=== PATIENT | male | born 1975 | race Caucasian/White ===

== ENCOUNTER 2019-12-02 13:15 | Observation (INO) | payer OTHER ==
[2019-12-02] MEDS ORDERED: MORPHINE SULFATE 4 MG/ML SYRINGE IV STA (13:40)
[2019-12-02] MEDS ORDERED: SODIUM CHLORIDE 0.9% 1,000 ML IV STA (13:40)
[2019-12-02] MEDS ORDERED: ONDANSETRON 4 MG/2 ML VIAL IVP STA (13:40)
--- NOTE | 2019-12-02 13:45 | ED ---
Abdominal Pain HPI <Louis Woodson - Last Filed: 12/02/19 16:30> - General Source: patient Mode of arrival: ambulatory Limitations: no limitations <Remi Hardin - Last Filed: 12/02/19 16:36> - General Chief Complaint: Abdominal Pain Stated Complaint: Abd Pain Time Seen by Provider: 12/02/19 13:36 - History of Present Illness Initial Comments: Patient is a 44-year-old male presenting to the emergency department with a chief complaint of abdominal pain. Patient reports pain started 2 days ago with a rather gradual onset in the right lower quadrant region with some radiation to the right testicle. Patient reports he is also getting nauseous but never vomited. He reports the pain initially started somewhat in the periorbital region and has migrated to the right lower quadrant region. Denies previous abdominal surgeries. Denies any night sweats fevers or chills. Denies dysuria, increased urgency or frequency. Denies hematuria, hematochezia or melena. (Remi Hardin) - Related Data Home Medications Medication Instructions Recorded Confirmed Dextroamphetamine/Amphetamine 30 mg PO BID@0630,1200 12/02/19 12/02/19 [Adderall] Finasteride [Proscar] 5 mg PO DAILY 12/02/19 12/02/19 Sertraline HCl [Zoloft] 100 mg PO DAILY 12/02/19 12/02/19 Allergies Allergy/AdvReac Type Severity Reaction Status Date / Time Penicillins Allergy Rash/Hives Verified 12/02/19 15:16 Review of Systems ROS Other: All systems not noted in ROS Statement are negative. <Louis Woodson - Last Filed: 12/02/19 16:30> ROS Other: All systems not noted in ROS Statement are negative. <Remi Hardin - Last Filed: 12/02/19 16:36> ROS Statement: Those systems with pertinent positive or pertinent negative responses have been documented in the HPI. Past Medical History Past Medical History: No Reported History History of Any Multi-Drug Resistant Organisms: None Reported Additional Past Surgical History / Comment(s): ACL repair Past Psychological History: No Psychological Hx Reported Smoking Status: Current some day smoker Past Alcohol Use History: None Reported Past Drug Use History: None Reported <Remi Hardin - Last Filed: 12/02/19 16:36> General Exam Limitations: no limitations General appearance: alert, in no apparent distress Head exam: Present: atraumatic, normocephalic, normal inspection Eye exam: Present: normal appearance, PERRL, EOMI Pupils: Present: normal accommodation ENT exam: Present: normal exam, normal oropharynx, mucous membranes moist, TM's normal bilaterally, normal external ear exam Neck exam: Present: normal inspection, full ROM. Absent: tenderness Respiratory exam: Present: normal lung sounds bilaterally. Absent: respiratory distress, wheezes, rales Cardiovascular Exam: Present: regular rate, normal rhythm, normal heart sounds GI/Abdominal exam: Present: soft, tenderness (Right lower quadrant. Positive McBurney point.). Absent: distended, guarding, rebound, rigid exam: Present: normal inspection. Absent: testicular tenderness, urethral discharge, scrotal swelling, vertical testicular lie, circumcision Extremities exam: Present: normal inspection, full ROM, normal capillary refill. Absent: tenderness Back exam: Present: normal inspection, full ROM. Absent: tenderness, CVA tenderness (R), CVA tenderness (L) Neurological exam: Present: alert, oriented X3 Psychiatric exam: Present: normal affect, normal mood Skin exam: Present: warm, dry, intact, normal color <Remi Hardin - Last Filed: 12/02/19 16:36> Course Vital Signs 12/02/19 12/02/19 13:26 15:11 Temperature 97.1 F L Pulse Rate 73 67 Respiratory 18 16 Rate Blood Pressure 142/82 134/60 O2 Sat by Pulse 97 98 Oximetry Medical Decision Making - Lab Data Result diagrams: 12/02/19 13:57 12/02/19 13:57 <Louis Woodson - Last Filed: 12/02/19 16:30> - Lab Data Result diagrams: 12/02/19 13:57 12/02/19 13:57 <Remi Hardin - Last Filed: 12/02/19 16:36> - Medical Decision Making Patient was reexamined and reevaluated by myself, Dr. Woodson. I agree with PAs findings. This includes diagnostic interpretation and treatment plan. Patient resting comfortably in bed, feels better following pain medication. Patient still does have mouth moderate discomfort right or abdomen. CT result reviewed. Patient requests Dr. Stoll. Case was discussed with Dr. Stoll will take patient to the OR. (Louis Woodson) - Lab Data Lab Results 12/02/19 12/02/19 12/02/19 Range/Units 13:57 13:57 13:57 WBC 8.8 (3.8-10.6) k/uL RBC 4.91 (4.30-5.90) m/uL Hgb 15.2 (13.0-17.5) gm/dL Hct 44.6 (39.0-53.0) % MCV 90.9 (80.0-100.0) fL MCH 30.9 (25.0-35.0) pg MCHC 34.0 (31.0-37.0) g/dL RDW 12.7 (11.5-15.5) % Plt Count 271 (150-450) k/uL Neutrophils % 76 % Lymphocytes % 15 % Monocytes % 5 % Eosinophils % 2 % Basophils % 1 % Neutrophils # 6.7 (1.3-7.7) k/uL Lymphocytes # 1.3 (1.0-4.8) k/uL Monocytes # 0.5 (0-1.0) k/uL Eosinophils # 0.2 (0-0.7) k/uL Basophils # 0.1 (0-0.2) k/uL Sodium 137 (137-145) mmol/L Potassium 4.1 (3.5-5.1) mmol/L Chloride 102 (98-107) mmol/L Carbon Dioxide 28 (22-30) mmol/L Anion Gap 7 mmol/L BUN 13 (9-20) mg/dL Creatinine 1.00 (0.66-1.25) mg/dL Est GFR (CKD-EPI)AfAm >90 (>60 ml/min/1.73 sqM) Est GFR (CKD-EPI)NonAf >90 (>60 ml/min/1.73 sqM) Glucose 102 H (74-99) mg/dL Calcium 9.6 (8.4-10.2) mg/dL Total Bilirubin 0.8 (0.2-1.3) mg/dL AST 31 (17-59) U/L ALT 30 (4-49) U/L Alkaline Phosphatase 65 (38-126) U/L Total Protein 7.6 (6.3-8.2) g/dL Albumin 4.5 (3.5-5.0) g/dL Lipase 29 (23-300) U/L Urine Color Light Yellow Urine Appearance Clear (Clear) Urine pH 7.0 (5.0-8.0) Ur Specific [place] 1.006 (1.001-1.035) Urine Protein Negative (Negative) Urine Glucose (UA) Negative (Negative) Urine Ketones Negative (Negative) Urine Blood Negative (Negative) Urine Nitrite Negative (Negative) Urine Bilirubin Negative (Negative) Urine Urobilinogen <2.0 (<2.0) mg/dL Ur Leukocyte Esterase Negative (Negative) Disposition <Louis Woodson - Last Filed: 12/02/19 16:30> Is patient prescribed a controlled substance at d/c from ED?: No Time of Disposition: 16:36 <Remi Hardin - Last Filed: 12/02/19 16:36> Clinical Impression: Acute appendicitis Disposition: ADMITTED IP TO THIS HOSP Condition: Good Referrals: Sylvia Covarrubias MD [Primary Care Provider] - 1-2 days
[2019-12-02] MEDS ORDERED: HYDROmorphone 0.5 MG/0.5 ML SYRINGE IVP STA (14:06)
[2019-12-02 14:14] LABS: Basophils # (A) 0.1 k/uL (0-0.2); Basophils % (A) 1 %; Eosinophils # (A) 0.2 k/uL (0-0.7); Eosinophils % (A) 2 %; HCT 44.6 % (39.0-53.0); HGB 15.2 gm/dL (13.0-17.5); Lymphocytes # (A) 1.3 k/uL (1.0-4.8); Lymphocytes % (A) 15 %; MCH 30.9 pg (25.0-35.0); MCV 90.9 fL (80.0-100.0); Monocytes # (A) 0.5 k/uL (0-1.0); Monocytes % (A) 5 %; Neutrophils # (A) 6.7 k/uL (1.3-7.7); Neutrophils % (A) 76 %; Platelet Count 271 k/uL (150-450); RBC 4.91 m/uL (4.30-5.90); RDW 12.7 % (11.5-15.5); WBC 8.8 k/uL (3.8-10.6)
[2019-12-02 14:20] LABS: Appearance,Urine Clear (Clear); Bilirubin,Urine Negative (Negative); Blood,Urine Negative (Negative); Color,Urine Light Yellow; Glucose,Urine (UA) Negative (Negative); Ketones,Urine Negative (Negative); Leukocyte Esterase,Urine Negative (Negative); Nitrite,Urine Negative (Negative); Protein,Urine Negative (Negative); Specific Gravity,Urine 1.006 (1.001-1.035); Urobilinogen,Urine <2.0 mg/dL (<2.0)
[2019-12-02 14:26] LABS: ALT 30 U/L (4-49); AST 31 U/L (17-59); African American GFR (CKD) >90 (>60 ml/min/1.73 sqM); Albumin 4.5 g/dL (3.5-5.0); Alkaline Phosphatase 65 U/L (38-126); Anion Gap 7 mmol/L; Blood Urea Nitrogen 13 mg/dL (9-20); Calcium 9.6 mg/dL (8.4-10.2); Carbon Dioxide 28 mmol/L (22-30); Chloride 102 mmol/L (98-107); Glucose 102 mg/dL (74-99); Lipase 29 U/L (23-300); Non-African American GFR(CKD) >90 (>60 ml/min/1.73 sqM); Potassium 4.1 mmol/L (3.5-5.1); Sodium 137 mmol/L (137-145); Total Bilirubin 0.8 mg/dL (0.2-1.3); Total Protein 7.6 g/dL (6.3-8.2)
--- NOTE | 2019-12-02 14:54 | CT ---
EXAMINATION TYPE: CT abdomen pelvis w con DATE OF EXAM: 12/02/2019 COMPARISON: None HISTORY: RLQ pain CT DLP: 1243.3 mGycm Automated exposure control for dose reduction was used. TECHNIQUE: Helical acquisition of images was performed from the lung bases through the pelvis. CONTRAST: Performed without Oral Contrast and with IV Contrast, patient injected with 100 mL of Isovue 300. FINDINGS: LUNG BASES: No pericardial or pleural effusion. LIVER: Normal. BILIARY SYSTEM: Normal. PANCREAS: Normal. SPLEEN: Normal. ADRENALS: Normal. KIDNEYS: Normal. BOWEL: The appendix demonstrates thickening up to 14 mm, mucosal hyperemia, periappendiceal inflamma tion and periappendiceal reactive lymph nodes. Trace amount of periappendiceal free fluid. No focal f luid collection PERITONEUM: No pneumoperitoneum. Trace right lower quadrant and right paracolic gutter free fluid. N o focal fluid collections. LYMPH NODES: No lymphadenopathy. There are nonenlarged reactive lymph nodes in the region of the claire endix. PELVIS: Normal. VASCULATURE: No abdominal aortic aneurysm. MUSCULOSKELETAL: Degenerative changes of the spine. IMPRESSION: Acute appendicitis with periappendiceal trace free fluid and reactive nonenlarged lymph nodes. No caio dence of perforation or abscess. Dr. Cyndi Gaona discussed findings with Rai Hardin PA-C via the phone on 12/02/2019 at 2: 51 PM, and results were acknowledged.
[2019-12-02] MEDS ORDERED: HEPARIN SODIUM,PORCINE 5,000 UNIT/ML 1 ML VIAL SQ STA (16:07)
[2019-12-02] MEDS ORDERED: LEVOFLOXACIN 750MG-D5W PMX 750 MG in DEXTROSE/WATER 1 150ML.BAG IVPB STA (16:07)
--- NOTE | 2019-12-02 16:24 | P.GSHP ---
History of Present Illness H&P Date: 12/02/19 CHIEF COMPLAINT: Right lower quadrant abdominal pain for 2 days HISTORY OF PRESENT ILLNESS: The patient is a previously healthy 44-year-old male who presents with 2 day history of periumbilical with right lower quadrant abdominal pain that is crampy dull ache in nature. No reports of prior abdominal pain. He states the intensity of the pain is moderate. He presented with CT abdomen and pelvis consistent with dilated appendix suspicious for appendicitis hence general surgery admission. PAST MEDICAL HISTORY: See list. PAST SURGICAL HISTORY: See list. CURRENT MEDICATIONS: See list. ALLERGIES: See list. SOCIAL HISTORY: See list. FAMILY HISTORY: No Crohns disease and ulcerative colitis. REVIEW OF ORGAN SYSTEMS: CONSTITUTIONAL: Present fever, no chills. Denies recent weight loss. HEENT: Denies any trouble with vision, hearing or nosebleeds. No difficulty swallowing. LYMPHATIC: The patient denies any lumps and bumps around the neck. ENDOCRINE: Denies any thyroid disorders. Denies any blood sugar glucose intolerance. RESPIRATORY: Denies shortness of breath including chronic cough. CARDIOVASCULAR: Denies history of chest pain with exertion. GASTROINTESTINAL: Denies regurgitation of bile at night as well as intermittent nausea. No blood in stools. History of gluten sensitivity. GENITOURINARY: Denies any blood in urine or increased urinary frequency. ` MUSCULOSKELETAL: Denies current joint arthritis. NEUROLOGIC: Denies any numbness or tingling along the distal extremities. No seizure disorders or headaches. PSYCHIATRIC: Denies any depression or suicidal ideation. HEMATOLOGIC: Denies any abnormal bleeding or bruising. PHYSICAL EXAMINATION: GENERAL: A 44-year-old male in no acute distress. Pleasant. HEENT: No sclera icterus. Extraocular movements grossly intact. Moist buccal mucosa. Head is atraumatic, normocephalic. Hears conversational speech. No nasal drainage. NECK: Supple without lymphadenopathy. No JV distention. CHEST: Non-labored respirations and equal bilateral excursions. CARDIOVASCULAR: Regular rate and rhythm. Palpable 2+ radial pulses. ABDOMEN: Soft, tender at the right lower quadrant without guarding. MUSCULOSKELETAL: No clubbing, cyanosis or edema. NEUROLOGIC: No focal or lateralizing signs. PSYCH: Appropriate affect. Alert and oriented to person, place and time. SKIN: Well perfused. Good skin turgor. LABS: Reviewed. White blood cell count normal STUDIES: CT of the abdomen and pelvis independently reviewed with findings consistent with appendicitis, dilated ascending to the right lower quadrant ASSESSMENT: 1. Right lower quadrant pain. 2. Appendicitis PLAN: 1. I have discussed benefits and risks of robotic appendectomy. 2. Bilateral SCDs. Thank you very much for allowing me to participate in the care of your patient. Past Medical History Past Medical History: No Reported History History of Any Multi-Drug Resistant Organisms: None Reported Additional Past Surgical History / Comment(s): ACL repair Past Psychological History: No Psychological Hx Reported Smoking Status: Current some day smoker Past Alcohol Use History: None Reported Past Drug Use History: None Reported Medications and Allergies Home Medications Medication Instructions Recorded Confirmed Type Dextroamphetamine/Amphetamine 30 mg PO BID@0630,1200 12/02/19 12/02/19 History [Adderall] Finasteride [Proscar] 5 mg PO DAILY 12/02/19 12/02/19 History Sertraline HCl [Zoloft] 100 mg PO DAILY 12/02/19 12/02/19 History Allergies Allergy/AdvReac Type Severity Reaction Status Date / Time Penicillins Allergy Rash/Hives Verified 12/02/19 15:16 Surgical - Exam Vital Signs Temp Pulse Resp BP Pulse Ox 97.1 F L 73 18 142/82 97 12/02/19 13:26 12/02/19 13:26 12/02/19 13:26 12/02/19 13:26 12/02/19 13:26 Results - Labs 12/02/19 13:57 12/02/19 13:57 Abnormal Lab Results - Last 24 Hours (Table) 12/02/19 Range/Units 13:57 Glucose 102 H (74-99) mg/dL Diabetes panel 12/02/19 Range/Units 13:57 Sodium 137 (137-145) mmol/L Potassium 4.1 (3.5-5.1) mmol/L Chloride 102 (98-107) mmol/L Carbon Dioxide 28 (22-30) mmol/L BUN 13 (9-20) mg/dL Creatinine 1.00 (0.66-1.25) mg/dL Glucose 102 H (74-99) mg/dL Calcium 9.6 (8.4-10.2) mg/dL AST 31 (17-59) U/L ALT 30 (4-49) U/L Alkaline Phosphatase 65 (38-126) U/L Total Protein 7.6 (6.3-8.2) g/dL Albumin 4.5 (3.5-5.0) g/dL Calcium panel 12/02/19 Range/Units 13:57 Calcium 9.6 (8.4-10.2) mg/dL Albumin 4.5 (3.5-5.0) g/dL Pituitary panel 12/02/19 Range/Units 13:57 Sodium 137 (137-145) mmol/L Potassium 4.1 (3.5-5.1) mmol/L Chloride 102 (98-107) mmol/L Carbon Dioxide 28 (22-30) mmol/L BUN 13 (9-20) mg/dL Creatinine 1.00 (0.66-1.25) mg/dL Glucose 102 H (74-99) mg/dL Calcium 9.6 (8.4-10.2) mg/dL Adrenal panel 12/02/19 Range/Units 13:57 Sodium 137 (137-145) mmol/L Potassium 4.1 (3.5-5.1) mmol/L Chloride 102 (98-107) mmol/L Carbon Dioxide 28 (22-30) mmol/L BUN 13 (9-20) mg/dL Creatinine 1.00 (0.66-1.25) mg/dL Glucose 102 H (74-99) mg/dL Calcium 9.6 (8.4-10.2) mg/dL Total Bilirubin 0.8 (0.2-1.3) mg/dL AST 31 (17-59) U/L ALT 30 (4-49) U/L Alkaline Phosphatase 65 (38-126) U/L Total Protein 7.6 (6.3-8.2) g/dL Albumin 4.5 (3.5-5.0) g/dL
[2019-12-02] MEDS ORDERED: LORazepam 2 MG/ML INJ IV PRN (16:33)
[2019-12-02] MEDS ORDERED: NALOXONE 0.4 MG/ML 1 ML VIAL IV PRN ×2 (16:33→19:39)
[2019-12-02] MEDS ORDERED: ONDANSETRON 4 MG/2 ML VIAL IVP ONE (17:28)
[2019-12-02] MEDS ORDERED: DEXAMETHASONE SOD PHOSPHATE 10 MG/ML 1 ML VIAL IV ONE (17:29)
[2019-12-02] MEDS ORDERED: SUCCINYLCHOLINE CHLORIDE 100 MG/5 ML SYR IV ONE (17:40)
[2019-12-02] MEDS ORDERED: fentaNYL (PF) 50 MCG/ML 2 ML AMP ONE (17:40)
[2019-12-02] MEDS ORDERED: NEOSTIGMINE 1 MG/ML 10 ML VIAL ONE (17:40)
[2019-12-02] MEDS ORDERED: MIDAZOLAM 2 MG/2 ML VIAL ONE (17:40)
[2019-12-02] MEDS ORDERED: ROCURONIUM 10 MG/ML (10 ML VIAL) IV ONE (17:40)
[2019-12-02] MEDS ORDERED: GLYCOPYRROLATE 0.2 MG/ML 2 ML VIAL ONE (17:40)
[2019-12-02] MEDS ORDERED: HYDROmorphone (PF) 1 MG/ML ONE (17:40)
[2019-12-02] MEDS ORDERED: LIDOCAINE 1% INJ 10MG/ML (20 ML MDV) ONE (17:40)
[2019-12-02] MEDS ORDERED: PROPOFOL 10 MG/ML 20 ML VIAL IV ONE (17:40)
[2019-12-02] MEDS ORDERED: LACTATED RINGERS 1,000 ML IV ONE ×3 (17:41→19:55)
[2019-12-02] MEDS ORDERED: BUPIVACAINE (PF) 0.5% 30 ML VIAL SQ ONE (17:52)
[2019-12-02] MEDS ORDERED: ONDANSETRON 4 MG/2 ML VIAL IVP PRN (19:40)
[2019-12-02] MEDS ORDERED: METOCLOPRAMIDE 5 MG/ML 2 ML VIAL IVP PRN (19:40)
[2019-12-02] MEDS: HYDROmorphone 1 MG/ML 1 ML SYRINGE IVP ONE ×2 (19:45→19:50)
--- NOTE | 2019-12-02 19:47 | P.OP ---
Date of Procedure: 12/02/19 Description of Procedure: SURGEON: APOORVA PANIAGUA MD Preoperative Diagnosis: 1. Acute appendicitis Postoperative Diagnosis: 1. Acute appendicitis with periappendicitis Procedure(s) Performed: 1. Robotic-assisted daVinci Xi laparoscopic lysis of adhesions, over 45 minutes 2. Robotic-assisted daVinci Xi laparoscopic appendectomy Anesthesia: GETA, local Surgeon: Apoorva Paniagua Estimated Blood Loss (ml): 30 Pathology: other (appendix, peritoneal fluid) Condition: stable Disposition: floor Operative Findings: 1. Acute appendicitis without peritonitis with periappendicitis 2. Terminal ileum unremarkable 3. No inguinal hernias 4. Dense inflammatory reaction involving mesoappendix including mucosal thickening of the appendix suspicious for malignancy 5. Dense adhesions to the right pelvis requiring lysis of adhesions over 45 minutes INDICATIONS: The patient is a 44-year-old male who presents with acute appendicitis. Benefits and risks, including infection, open surgery, and bleeding for additional surgery was discussed at length. Informed consent was obtained. All questions of the patient and family were answered. DESCRIPTION: The patient was transferred to the operating room and placed in supine position. The abdomen was then prepped and draped in standard sterile fashion as Ioban was placed along the abdomen to minimize any contamination of skin floor. After a timeout protocol was performed, attention was then brought to the left upper quadrant whereby a 0 degree 5 mm laparoscopic trocar entry was performed. The abdominal cavity was entered and insufflated to 12 mmHg pressure, which was tolerated well. Diagnostic laparoscopy demonstrated no injury to bowel, viscera or mesentery. Next a robotic 8-mm trocar was placed along the left lower quadrant, 10-cm lateral to the midline. A 12 mm port was placed along the left upper quadrant and another 8-mm port left lateral abdominal wall. Ports were placed 8 cm apart from each other including 15-20 cm away from the target anatomy of the right pelvis. The patient was then placed in Trendelenburg position, at least 7 down and right side up at least 7. The robotic da Fabien XI system was primed and docked from the left side of the patient. Using atraumatic graspers and vessel sealer, the robotic system was docked and primed as described. Instruments were interchanged by the medical clerical assistant including graspers, robotic stapler and vessel sealer. Next, attention was brought to identify the cecum. A systematic view within the abdominal cavity was started with the small bowel which was unremarkable. No inguinal hernias were identified. The body of the appendix was moderately dilated with moderate periappendicitis adherent to the pelvis. The mesoappendix was calcified with dense inflammatory reaction where malignancy cannot be excluded. No free perforation was identified. The appendix was dissected free from its surrounding tissues. Extensive lysis of adhesions over 45 minutes was used to dissect the appendix was surrounding tissues Multiple green 45 mm robotic staple loads were fired along the base of the appendix. The staple line was hemostatic After applying pressure using 4 x 4 gauze. Hemostasis was checked prior to undocking the robot. The robot was undocked. I re-scrubbed into the case. The specimen was removed from the abdominal cavity with an Endo Catch bag through the 12 mm trocar at the left upper quadrant. The port site was closed with 0 Vicryl and Konstantin Cheatham. All instruments and pneumoperitoneum were evacuated from the abdominal cavity. Local anesthetic was infiltrated to all wounds for postop analgesia. All incisions were also cleansed with diluted hydrogen peroxide. The incisions were closed with 4-0 Monocryl. Exofin glue was applied to the rest of the skin incisions. At the specimen extraction site, Optifoam dressing was placed. The patient had tolerated the procedure well. The patient was extubated successfully. The patient was transferred to the postanesthesia care unit in stable condition.
[2019-12-02] MEDS ORDERED: HYDROmorphone 1 MG/ML 1 ML SYRINGE IVP ONE ×2 (19:55→20:05)
[2019-12-02] MEDS: SODIUM CHLORIDE 0.9% 1,000 ML IV SCH (21:10)
[2019-12-02] MEDS: HYDROmorphone 1 MG/ML 1 ML SYRINGE IVP PRN (22:50)
[2019-12-03] MEDS: ACETAMINOPHEN TAB 325 MG TAB PO SCH ×4 (00:33→18:22)
[2019-12-03] MEDS: HYDROmorphone 1 MG/ML 1 ML SYRINGE IVP PRN ×4 (02:38→13:42)
[2019-12-03] MEDS: SODIUM CHLORIDE 0.9% 1,000 ML IV SCH ×2 (04:44→13:40)
[2019-12-03 08:20] LABS: Basophils % (A) 0 %; Eosinophils % (A) 0 %; HCT 40.9 % (39.0-53.0); HGB 13.7 gm/dL (13.0-17.5); Lymphocytes # (A) 1.2 k/uL (1.0-4.8); Lymphocytes % (A) 12 %; MCH 30.9 pg (25.0-35.0); MCHC 33.4 g/dL (31.0-37.0); MCV 92.4 fL (80.0-100.0); Mean Platelet Volume 6.9; Monocytes # (A) 0.6 k/uL (0-1.0); Monocytes % (A) 5 %; Neutrophils # (A) 8.4 k/uL (1.3-7.7); Neutrophils % (A) 82 %; Platelet Count 279 k/uL (150-450); RBC 4.42 m/uL (4.30-5.90); RDW 12.7 % (11.5-15.5); WBC 10.3 k/uL (3.8-10.6)
[2019-12-03 08:33] LABS: Potassium 4.5 mmol/L (3.5-5.1)
[2019-12-03 08:34] LABS: African American GFR (CKD) >90 (>60 ml/min/1.73 sqM); Anion Gap 5 mmol/L; Blood Urea Nitrogen 12 mg/dL (9-20); Carbon Dioxide 30 mmol/L (22-30); Chloride 101 mmol/L (98-107); Glucose 106 mg/dL (74-99); Non-African American GFR(CKD) 84 (>60 ml/min/1.73 sqM); Sodium 136 mmol/L (137-145)
[2019-12-03] MEDS ORDERED: PANTOPRAZOLE 40 MG/10 ML VIAL IV SCH (09:00)
[2019-12-03] MEDS ORDERED: LEVOFLOXACIN 750MG-D5W PMX 750 MG in DEXTROSE/WATER 1 150ML.BAG IVPB STA (10:03)
[2019-12-03] MEDS ORDERED: IBUPROFEN 600 MG TAB PO PRN (14:11)
--- NOTE | 2019-12-03 14:25 | P.DS ---
<Ursula Mock - Last Filed: 12/03/19 14:18> Providers Expected date of discharge: 12/03/19 Hospital Course: Discharge diagnosis 1. Acute appendicitis with periappendicitis Status post Robotic-assisted daVinci Xi laparoscopic lysis of adhesions And Robotic-assisted daVinci Xi laparoscopic appendectomy Hospital course The patient is a previously healthy 44-year-old male who presents with 2 day history of periumbilical with right lower quadrant abdominal pain that is crampy dull ache in nature. No reports of prior abdominal pain. He states the intensity of the pain is moderate. He presented with CT abdomen and pelvis consistent with dilated appendix suspicious for appendicitis. Patient is status post Robotic-assisted daVinci Xi laparoscopic lysis of adhesions And Robotic- assisted daVinci Xi laparoscopic appendectomy for acute appendicitis with periappendicitis. Patient is tolerating diet. He has been up and ambulating. He is afebrile. Patient to be discharged this evening after seen by Dr. Paniagua. Physician Cotton Ginner note has been reviewed by physician. Signing provider agrees with the documented findings, assessment, and plan of care. Patient Condition at Discharge: Stable Plan - Discharge Summary Discharge Rx Participant: No New Discharge Prescriptions: New Ibuprofen [Motrin] 600 mg PO Q8HR PRN #30 tab PRN Reason: Pain Acetaminophen Tab [Tylenol Tab] 1,000 mg PO Q6HR PRN #30 tablet PRN Reason: Pain Continue Finasteride [Proscar] 5 mg PO DAILY Dextroamphetamine/Amphetamine [Adderall] 30 mg PO BID@0630,1200 Sertraline HCl [Zoloft] 100 mg PO DAILY Discharge Medication List Dextroamphetamine/Amphetamine [Adderall] 30 mg PO BID@0630,1200 12/02/19 [History] Finasteride [Proscar] 5 mg PO DAILY 12/02/19 [History] Sertraline HCl [Zoloft] 100 mg PO DAILY 12/02/19 [History] Acetaminophen Tab [Tylenol Tab] 1,000 mg PO Q6HR PRN #30 tablet 12/04/19 [Rx] Ibuprofen [Motrin] 600 mg PO Q8HR PRN #30 tab 12/04/19 [Rx] Follow up Appointment(s)/Referral(s): Sylvia Covarrubias MD [Primary Care Provider] - 12/06/19 1:00 pm Apoorva Paniagua MD [STAFF PHYSICIAN] - 12/10/19 3:15 pm Patient Instructions/Handouts: Laparoscopic Appendectomy (DC) Activity/Diet/Wound Care/Special Instructions: No lifting over 4 pounds in 4 weeks until Jan 01. June shower. No bath tub soaks for two weeks until Dec 17 Avoid steak, tough meats and seeds such as raspberry seeds. Diet: Regular Discharge Disposition: HOME SELF-CARE <Apoorva Paniagua - Last Filed: 12/04/19 23:29> Providers Date of admission: 12/02/19 16:36 Attending physician: Apoorva Paniagua Consults: 12/02/19 16:07 Consult Physician Routine Consulting Provider: [facility] Consult Reason/Comments: [facility] Do you want consulting provider notified?: Yes Primary care physician: Satish Ward Hospital Course: Discharge held due to uncontrolled abdominal pain.
--- NOTE | 2019-12-03 20:15 | P.PN ---
Subjective Progress Note Date: 12/03/19 CHIEF COMPLAINT: Status post appendectomy HISTORY OF PRESENT ILLNESS: The patient is a 44-year-old male status post appendectomy for acute appendicitis. He is postoperative day 1. He is tolerating diet. Patient has moderate pain along the shoulders and neck from the gas of the surgery. He has been using Dilaudid for pain. Findings of surgery reviewed. ROS: No reports of nausea and vomiting. No fevers or chills. No productive sputum PHYSICAL EXAM: VITAL SIGNS: Reviewed CONSTITUTIONAL: Well developed and in no acute distress. EYES: Conjuctivae without sclera icterus. Extraocular movements grossly intact. HEAD, EARS, NOSE, THROAT: Moist buccal mucosa. Head is atraumatic, normocephalic. Hears conversational speech. No nasal drainage. NECK: Supple. No thyroidomegaly. RESPIRATORY: Non-labored respirations and equal bilateral excursions. CARDIOVASCULAR: Palpable 2+ radial pulses. Regular rate. Regular rhythm. ABDOMEN: Incisions clean dry and intact. MUSCULOSKELETAL: No gross deformity of the lower extremities noted. No clubbing. No cyanosis. SKIN: Good skin turgor. Well perfused. NEUROLOGIC: Cranial nerves II through XII grossly intact. No focal or lateralizing signs. PSYCH: Appropriate affect. Alert and oriented to person, place and time. CLINICAL LABS: White blood cell count normal ASSESSMENT: 1. Acute appendicitis PLAN: 1. Will adjust pain management to oral pain meds including simethicone. 2. Continue antibiotics for appendicitis. 3. Discharge anticipated for tomorrow. 4. Care plan described and patient agreeable and happy with plan. Objective - Vital Signs Vital signs: Vital Signs Temp 97.2 F L 12/03/19 15:00 Pulse 63 12/03/19 15:00 Resp 16 12/03/19 15:00 BP 152/72 12/03/19 15:00 Pulse Ox 96 12/03/19 15:00 Intake & Output 12/03/19 12/03/19 12/04/19 06:59 18:59 06:59 Intake Total 660 1395 Output Total 530 Balance 130 1395 Weight 107.501 kg Intake: IV 300 Intake, IV Titration 195 Amount Sodium Chloride 0.9% 1, 195 000 ml @ 130 mls/hr IV . Q7H42M [facility] Rx#:[id number] Oral 360 1200 Output: Urine 500 Estimated Blood Loss 30 Other: Voiding Method Toilet # Voids 1 4 - Labs CBC & Chem 7: 12/03/19 07:54 12/03/19 07:54 Labs: Abnormal Lab Results - Last 24 Hours (Table) 12/03/19 12/03/19 Range/Units 07:54 07:54 Neutrophils # 8.4 H (1.3-7.7) k/uL Sodium 136 L (137-145) mmol/L Glucose 106 H (74-99) mg/dL Microbiology - Last 24 Hours (Table) 12/02/19 19:20 Gram Stain - Preliminary Peritoneal Fluid Body Fluid Culture - Preliminary 12/02/19 19:20 Anaerobic Culture - Preliminary Peritoneal Fluid
[2019-12-03] MEDS: SIMETHICONE 40 MG/0.6 ML DROPS 2,000 MG/30 ML BOTTLE PO SCH (21:23)
[2019-12-03] MEDS: IBUPROFEN 600 MG TAB PO SCH ×2 (21:23→22:42)
[2019-12-03 22:11] VITALS: RESP 18
[2019-12-04 02:54] VITALS: BP 142/73; PULSE 68; TEMP 97.8
[2019-12-04] MEDS: ACETAMINOPHEN TAB 325 MG TAB PO SCH ×3 (05:38→14:03)
[2019-12-04] MEDS ORDERED: LEVOFLOXACIN 750MG-D5W PMX 750 MG in DEXTROSE/WATER 1 150ML.BAG IVPB SCH (09:00)
[2019-12-04] MEDS ORDERED: PANTOPRAZOLE 40 MG TABLET PO SCH (09:00)
[2019-12-04] MEDS: IBUPROFEN 600 MG TAB PO SCH (09:02)
[2019-12-04] MEDS: SIMETHICONE 40 MG/0.6 ML DROPS 2,000 MG/30 ML BOTTLE PO SCH (09:03)
--- NOTE | 2019-12-04 12:32 | P.DS ---
Providers Date of admission: 12/02/19 16:36 Expected date of discharge: 12/04/19 Attending physician: Apoorva Paniagua Consults: 12/02/19 16:07 Consult Physician Routine Consulting Provider: [facility] Consult Reason/Comments: [facility] Do you want consulting provider notified?: Yes Primary care physician: Satish Ward Hospital Course: Discharge diagnosis 1. Acute appendicitis with periappendicitis Status post Robotic-assisted daVinci Xi laparoscopic lysis of adhesions And Robotic-assisted daVinci Xi laparoscopic appendectomy Hospital course The patient is a healthy 44-year-old male who presents with 2 day history of periumbilical with right lower quadrant abdominal pain that is crampy dull ache in nature. No reports of prior abdominal pain. He states the intensity of the pain is moderate. He presented with CT abdomen and pelvis consistent with dilated appendix suspicious for appendicitis. Patient is status post Robotic-assisted daVinci Xi laparoscopic lysis of adhesions And Robotic-assisted daVinci Xi laparoscopic appendectomy for acute appendicitis with periappendicitis. Patient is tolerating diet. He has been up and ambulating. He is afebrile. His pain is controlled. He is stable for discharge Physician Material Disposition Inspector note has been reviewed by physician. Signing provider agrees with the documented findings, assessment, and plan of care. Patient Condition at Discharge: Stable Plan - Discharge Summary Discharge Rx Participant: No New Discharge Prescriptions: New Ibuprofen [Motrin] 600 mg PO Q8HR PRN #30 tab PRN Reason: Pain Acetaminophen Tab [Tylenol Tab] 1,000 mg PO Q6HR PRN #30 tablet PRN Reason: Pain Continue Finasteride [Proscar] 5 mg PO DAILY Dextroamphetamine/Amphetamine [Adderall] 30 mg PO BID@0630,1200 Sertraline HCl [Zoloft] 100 mg PO DAILY Discharge Medication List Dextroamphetamine/Amphetamine [Adderall] 30 mg PO BID@0630,1200 12/02/19 [History] Finasteride [Proscar] 5 mg PO DAILY 12/02/19 [History] Sertraline HCl [Zoloft] 100 mg PO DAILY 12/02/19 [History] Acetaminophen Tab [Tylenol Tab] 1,000 mg PO Q6HR PRN #30 tablet 12/04/19 [Rx] Ibuprofen [Motrin] 600 mg PO Q8HR PRN #30 tab 12/04/19 [Rx] Follow up Appointment(s)/Referral(s): Sylvia Covarrubias MD [Primary Care Provider] - 1-2 days Apoorva Paniagua MD [STAFF PHYSICIAN] - 12/10/19 Patient Instructions/Handouts: Laparoscopic Appendectomy (DC) Activity/Diet/Wound Care/Special Instructions: No lifting over 4 pounds in 4 weeks until Jan 01. June shower. No bath tub soaks for two weeks until Dec 17 Avoid steak, tough meats and seeds such as raspberry seeds. Diet: Regular Discharge Disposition: HOME SELF-CARE
== END 2019-12-04 14:32 | disposition home or self-care (01) ==
LOC: EC 13:15 → 3NCARDOBS 16:36
PROVIDERS: ADMIT Surgery Plastic and Reconstructive Surgery; ATTEND Surgery Plastic and Reconstructive Surgery
DX: K35.80 Unspecified acute appendicitis (principal); F17.200 Nicotine dependence, unspecified, uncomplicated; K66.0 Peritoneal adhesions (postprocedural) (postinfection); Z79.899 Other long term (current) drug therapy
CPT/HCPCS: 44180; 44970; S2900; 36415; 74177; 80048; 80053; 81003; 83690; 85025; 87070; 87075; 87205; 88304; 96361; 96372; 96374; 96375; 99285

== ENCOUNTER → 2023-01-23 | Outpatient (CLI) | payer OTHER ==
[2023-01-23 18:53] LABS: Basophils # (A) 0.05 X 10*3/uL (0.00-0.10); Basophils % (A) 0.8 %; Eosinophils # (A) 0.08 X 10*3/uL (0.04-0.35); Eosinophils % (A) 1.3 %; HCT 41.3 % (39.6-50.0); HGB 14.1 g/dL (13.0-17.0); Lymphocytes # (A) 1.13 X 10*3/uL (0.90-5.00); Lymphocytes % (A) 19.1 %; MCH 29.9 pg (27.0-32.0); MCHC 34.1 g/dL (32.0-37.0); MCV 87.7 FL (80.0-97.0); Mean Platelet Volume 10.8 FL (9.5-12.2); Monocytes % (A) 3.4 %; NRBC Per 100 WBC 0 X 10*3/uL (0.00-0.01); Neutrophils # (A) 4.45 X 10*3/uL (1.80-7.70); Neutrophils % (A) 75.1 %; Platelet Count 254 X 10*3/uL (140-440); RBC 4.71 X 10*6/uL (4.40-5.60); RDW 12.4 % (11.5-14.5); WBC 5.93 X 10*3/uL (4.50-10.00)
[2023-01-23 19:02] LABS: ALT 41 U/L (10-49); AST 29 U/L (14-35); Albumin 4.7 g/dL (3.8-4.9); Albumin/Globulin Ratio 1.88 Ratio (1.60-3.17); Alkaline Phosphatase 62 U/L (41-126); Bilirubin, Conjugated <0.20 mg/dL (0.20-0.40); Bilirubin,Unconjugated >0.20 mg/dL (0.20-1.00); Blood Urea Nitrogen 20.3 mg/dL (9.0-27.0); Calcium 9.7 mg/dL (8.7-10.3); Carbon Dioxide 23.9 mmol/L (21.6-31.8); Chloride 104 mmol/L (96-109); Globulin 2.5 g/dL (1.6-3.3); Glucose 105 mg/dL (70-110); Potassium 4.4 mmol/L (3.5-5.5); Sodium 139 mmol/L (135-145); Total Bilirubin 0.4 mg/dL (0.3-1.2); Total Protein 7.2 g/dL (6.2-8.2)
[2023-01-23 19:23] LABS: Hepatitis B Surface AB- Quant 46.4 mIU/mL; Hepatitis B Surface Antigen Nonreactive; Hepatitis C IgG Antibody Nonreactive
== END | disposition home or self-care (01) ==
LOC: LABWHC1 12:35
PROVIDERS: ATTEND Dermatology
DX: L40.0 Psoriasis vulgaris (principal); Z79.899 Other long term (current) drug therapy
CPT/HCPCS: 36415; 80048; 80061; 80076; 85025; 86704; 86706; 86803; 87340

== ENCOUNTER → 2023-01-30 | Outpatient (CLI) | payer OTHER | END | disposition home or self-care (01) | LOC: LABWHC1 09:05 | PROVIDERS: ATTEND Nurse Practitioner Family | DX: L40.0 Psoriasis vulgaris (principal); Z79.899 Other long term (current) drug therapy | CPT/HCPCS: 36415; 86480 ==